=== PATIENT | male | born 1960 | race Two or more races ===

== ENCOUNTER 2018-09-12 20:19 | Emergency (ER) | payer MEDICAID ==
[~2018-09-12] VITALS: Ht 165.1 cm; Wt 74.0 kg
[2018-09-12 21:14] VITALS: BP 161/99
== END 2018-09-13 | disposition left against medical advice (07) ==
LOC: ER 20:19
DX: S89.90XA Unspecified injury of unspecified lower leg, initial encounter (principal); X58.XXXA Exposure to other specified factors, initial encounter; Z53.21 Procedure and treatment not carried out due to patient leaving prior to being seen by health care provider; Y93.89 Activity, other specified; Y92.89 Other specified places as the place of occurrence of the external cause; Y99.8 Other external cause status

== ENCOUNTER 2018-09-14 17:40 | Emergency (ER) | payer MEDICAID ==
[~2018-09-14] VITALS: Ht 175.3 cm; Wt 82.0 kg
[2018-09-14] MEDS ORDERED: TETANUS, DIPHTHERIA, PERTUSSIS VAC/PF 0.5ML (>7YR OLD) IM ONE (21:00)
[2018-09-14] MEDS ORDERED: IBUPROFEN 800MG TABLET PO ONE (21:00)
[2018-09-14 22:17] VITALS: BP 140/90
== END 2018-09-14 22:18 | disposition home or self-care (01) ==
LOC: ER 19:05
DX: S81.832A Puncture wound without foreign body, left lower leg, initial encounter (principal); I10 Essential (primary) hypertension; W27.0XXA Contact with workbench tool, initial encounter; Y93.H2 Activity, gardening and landscaping; Y92.027 Garden or yard of mobile home as the place of occurrence of the external cause; Z23 Encounter for immunization
CPT/HCPCS: 73590; 90471; 90715; 99283

== ENCOUNTER 2018-11-16 11:53 | Emergency (ER) | payer MEDICAID ==
[~2018-11-16] VITALS: Ht 165.1 cm; Wt 77.0 kg
[2018-11-16] MEDS ORDERED: FAMOTIDINE 20MG/2ML VIAL IV STA (12:20)
[2018-11-16] MEDS ORDERED: ONDANSETRON HCL 4MG/2ML INJ IV STA (12:20)
[2018-11-16] MEDS ORDERED: SODIUM CHLORIDE 0.9% 1,000 ML IV ONE (12:20)
[2018-11-16 13:32] LABS: BASOPHILS % 0.4 % (0.0-2.0); EOSINOPHILS % 0.3 % (0.0-5.0); HEMOGLOBIN. 14.5 g/dL (14.0-18.0); MEAN CORPUSCULAR HEMOGLOBIN 28.4 pg (28.0-32.0); MEAN CORPUSCULAR VOLUME 83.9 fL (80.0-94.0); MEAN PLATELET VOLUME 7.9 fl (7.4-10.4); MONOCYTES % 9.2 % (2.0-8.0); NEUTROPHILS % 60.1 % (40.0-76.0); PLATELET 252 x1000/uL (130-400); RED BLOOD CELL COUNT 5.13 mill/uL (4.7-6.1); RED CELL DISTRIBUTION WIDTH 13.8 % (11.6-14.6)
[2018-11-16 13:35] LABS: INR 1.1; PROTHROMBIN TIME 11.2 sec (9.6-11.0)
[2018-11-16 13:38] LABS: CHLORIDE 105 mEq/L (98-107)
[2018-11-16 13:41] LABS: ETHANOL BLOOD < 10 mg/dL
[2018-11-16 15:21] LABS: CLARITY URINE CLEAR (CLEAR); KETONES URINE TRACE (NEGATIVE); LEUKOCYTE ESTERASE URINE NEGATIVE (NEGATIVE); NITRITE URINE NEGATIVE (NEGATIVE); OCCULT BLOOD URINE NEGATIVE (NEGATIVE); PROTEIN URINE 1+ (NEGATIVE); SPECIFIC GRAVITY URINE 1.022 (1.005-1.030)
[2018-11-16 15:24] LABS: COLOR URINE YELLOW (YELLOW)
[2018-11-16 15:39] LABS: *AMPHETAMINES SCREEN URINE NEGATIVE (NEGATIVE); *BARBITURATES SCREEN URINE NEGATIVE (NEGATIVE); *BENZODIAZEPINES SCREEN URINE NEGATIVE (NEGATIVE); *COCAINE SCREEN URINE NEGATIVE (NEGATIVE); METHADONE URINE SCREEN NEGATIVE (NEGATIVE)
[2018-11-16 15:40] LABS: CANNABINOID URINE SCREEN PRESUMTIVE POSITIVE (NEGATIVE); OPIATES URINE SCREEN NEGATIVE (NEGATIVE); PHENCYCLIDINE URINE SCREEN NEGATIVE (NEGATIVE)
[2018-11-16 17:05] VITALS: BP 133/78
== END 2018-11-16 18:28 | disposition home or self-care (01) ==
LOC: ER 12:05
DX: R10.0 Acute abdomen (principal); J06.9 Acute upper respiratory infection, unspecified; I10 Essential (primary) hypertension
CPT/HCPCS: 36415; 71045; 74176; 80053; 80305; 80320; 81003; 83690; 85025; 85610; 96361; 96374; 96375; 99284; J2405; J3490; J7030; G0480

== ENCOUNTER 2019-09-13 11:04 | Emergency (ER) | payer MEDICAID ==
[~2019-09-13] VITALS: Ht 165.1 cm; Wt 67.0 kg
[2019-09-13] MEDS ORDERED: AZITHROMYCIN 500 MG TABLET PO STA (11:18)
[2019-09-13] MEDS ORDERED: CEFTRIAXONE SODIUM 250 MG/VIAL IM STA (11:18)
[2019-09-13] MEDS ORDERED: LIDOCAINE HCL 1% 20ML VIAL (Pyxis) INJ INFIL ONE (11:30)
[2019-09-13 12:00] LABS: CLARITY URINE CLEAR (CLEAR); COLOR URINE YELLOW (YELLOW); KETONES URINE NEGATIVE (NEGATIVE); LEUKOCYTE ESTERASE URINE NEGATIVE (NEGATIVE); NITRITE URINE NEGATIVE (NEGATIVE); OCCULT BLOOD URINE NEGATIVE (NEGATIVE); PROTEIN URINE NEGATIVE (NEGATIVE); SPECIFIC GRAVITY URINE 1.009 (1.005-1.030); UROBILINOGEN URINE 0.2 E.U./dL (0.2-1.0)
[2019-09-13 13:06] VITALS: BP 134/82
[2019-09-15 04:07] LABS: NEISSERIA GONORRHOEAE NAA Negative (Negative)
[2019-11-12] MEDS ORDERED: RISP3 PO (03:52)
[2019-11-12] MEDS ORDERED: AMLO5TAB88 MT (03:53)
== END 2019-09-13 13:08 | disposition home or self-care (01) ==
LOC: ER 11:04
DX: N34.2 Other urethritis (principal); Z11.3 Encounter for screening for infections with a predominantly sexual mode of transmission; I10 Essential (primary) hypertension
CPT/HCPCS: 81003; 87491; 87591; 96372; 99283; J0696; J3490

== ENCOUNTER 2024-05-03 20:37 | Inpatient (IN) | payer MEDICAID ==
[~2024-05-03] VITALS: Ht 162.6 cm; Wt 71.7 kg
[~2024-05-03 20:37] MED LIST: AMLO5TAB88 MT; RISP3 PO
[2024-05-03 21:51] LABS: BASOPHILS % 1.8 % (0.0-2.0); EOSINOPHILS % 1.7 % (0.0-5.0); HEMATOCRIT. 21.4 % (42.0-52.0); LYMPHOCYTES % 24.1 % (20.0-50.0); MEAN CORPUSCULAR HEMOGLOBIN 23.1 pg (28.0-32.0); MEAN CORPUSCULAR HGB CONC 30.8 g/dL (31.0-37.0); MEAN CORPUSCULAR VOLUME 75.1 fL (80.0-94.0); MEAN PLATELET VOLUME 7.2 fl (7.4-10.4); MONOCYTES % 6.5 % (2.0-8.0); NEUTROPHILS % 65.9 % (40.0-76.0); PLATELET 492 x1000/uL (130-400); RED BLOOD CELL COUNT 2.84 mill/uL (4.7-6.1); RED CELL DISTRIBUTION WIDTH 22.2 % (11.6-14.6); WHITE BLOOD COUNT 4.7 x1000/uL (4.5-11.0)
[2024-05-03 21:54] LABS: CHLORIDE 107 mEq/L (98-107); POTASSIUM 3.9 mEq/L (3.5-5.1); SODIUM 140 mEq/L (136-145)
[2024-05-03 21:55] LABS: CALCIUM 9.4 mg/dL (8.7-10.4); CARBON DIOXIDE 26 mEq/L (21-32)
[2024-05-03 21:58] LABS: DIFFERENTIAL COMMENT 1
[2024-05-03 22:00] LABS: GLUCOSE 119 mg/dL (70-105); UREA NITROGEN BLOOD 12 mg/dL (9-23)
[2024-05-03 22:05] LABS: ADD RBC MORPHOLOGY YES; HEMOGLOBIN. 6.6 g/dL (14.0-18.0)
[2024-05-03 22:34] LABS: HYPOCHROMASIA 1+; MICROCYTOSIS 2+; PLATELET ESTIMATE SLIGHTLY INCREASED
[2024-05-04 02:46] VITALS: BP 144/94; PULSE 74; RESP 18; TEMP 36.6
[2024-05-04 04:00] VITALS: BP 139/94; PULSE 78; RESP 16; TEMP 36.7; O2SAT 99
[2024-05-04 07:32] LABS: DIFFERENTIAL COMMENT 0; EOSINOPHILS % 1.7 % (0.0-5.0); HEMATOCRIT. 25.1 % (42.0-52.0); LYMPHOCYTES % 21.6 % (20.0-50.0); MEAN CORPUSCULAR HGB CONC 31.8 g/dL (31.0-37.0); MEAN CORPUSCULAR VOLUME 75.7 fL (80.0-94.0); MEAN PLATELET VOLUME 7.5 fl (7.4-10.4); MONOCYTES % 9.5 % (2.0-8.0); NEUTROPHILS % 65.2 % (40.0-76.0); PLATELET 458 x1000/uL (130-400); RED BLOOD CELL COUNT 3.32 mill/uL (4.7-6.1); RED CELL DISTRIBUTION WIDTH 21.8 % (11.6-14.6); WHITE BLOOD COUNT 5.1 x1000/uL (4.5-11.0)
[2024-05-04 08:00] VITALS: BP 140/94; PULSE 62; RESP 19; TEMP 36.7; O2SAT 97
[2024-05-04] MEDS ORDERED: GUAIFENESIN 200MG/10ML SUGAR FREE UDC PO PRN (08:15)
[2024-05-04] MEDS ORDERED: IPRATROPIUM/ALBUTEROL 0.5-3(2.5)MG/3ML NEB HHN PRN (08:15)
[2024-05-04] MEDS ORDERED: ONDANSETRON HCL 4MG/2ML INJ IV PRN (08:15)
[2024-05-04] MEDS ORDERED: HYDRALAZINE 20MG/ML VIAL IV PRN (08:15)
[2024-05-04] MEDS ORDERED: DOCUSATE SODIUM 100MG CAPSULE PO PRN (08:15)
[2024-05-04] MEDS ORDERED: MAGNESIUM/ALUMINUM HYDROXIDE/SIMETHICONE 30ML UDC PO PRN (08:15)
[2024-05-04] MEDS ORDERED: HYDRALAZINE 10 MG in SODIUM CHLORIDE 0.9% 49.5 ML IV PRN (08:30)
[2024-05-04] MEDS: AMLODIPINE 5MG TABLET PO SCH (09:47)
[2024-05-04] MEDS: PANTOPRAZOLE SODIUM 40 MG/VIAL IV SCH (09:47)
[2024-05-04 11:39] VITALS: BP 133/92; PULSE 84; RESP 19; TEMP 36.4; O2SAT 100
[2024-05-04 11:51] LABS: CHLORIDE 104 mEq/L (98-107); POTASSIUM 4.1 mEq/L (3.5-5.1); SODIUM 139 mEq/L (136-145)
[2024-05-04 11:52] LABS: CALCIUM 9.8 mg/dL (8.7-10.4); CARBON DIOXIDE 25 mEq/L (21-32)
[2024-05-04 11:56] LABS: IRON 18 ug/dL (65-175)
[2024-05-04 11:57] LABS: GLUCOSE 99 mg/dL (70-105); UREA NITROGEN BLOOD 10 mg/dL (9-23)
[2024-05-04 11:59] LABS: PHOSPHORUS 3.2 mg/dL (2.5-4.9); TOTAL IRON BINDING CAPACITY 370 ug/dl (250-425)
[2024-05-04 12:00] LABS: VITAMIN B12 SERUM 417 pg/mL (211-911)
[2024-05-04 12:01] LABS: FOLIC ACID (FOLATE) SERUM > 20.00 ng/mL (>5.38); T4 FREE 1.01 ng/dL (0.89-1.76)
[2024-05-04] MEDS: SUCRALFATE 1G TABLET PO SCH (12:08)
[2024-05-04 12:18] LABS: THYROID STIMULATING HORMONE 1.03 uIU/mL (0.55-4.78)
[2024-05-04 13:30] LABS: FERRITIN 4 ng/mL (22-322)
[2024-05-04 13:37] LABS: CLARITY URINE CLEAR (CLEAR); COLOR URINE YELLOW (YELLOW); GLUCOSE URINE NEGATIVE (NEGATIVE); KETONES URINE NEGATIVE (NEGATIVE); LEUKOCYTE ESTERASE URINE NEGATIVE (NEGATIVE); NITRITE URINE NEGATIVE (NEGATIVE); OCCULT BLOOD URINE NEGATIVE (NEGATIVE); PROTEIN URINE NEGATIVE (NEGATIVE); SPECIFIC GRAVITY URINE 1.016 (1.005-1.030); UROBILINOGEN URINE 0.2 E.U./dL (0.2-1.0)
[2024-05-04 16:00] VITALS: BP 128/90; PULSE 73; RESP 19; TEMP 36.6; O2SAT 100
[2024-05-04 17:00] LABS: HEMATOCRIT 25.9 % (42.0-52.0); HEMOGLOBIN 8.1 g/dL (14.0-18.0); MEAN CORPUSCULAR HEMOGLOBIN 23.8 pg (28.0-32.0); MEAN CORPUSCULAR HGB CONC 31.2 g/dL (31.0-37.0); MEAN CORPUSCULAR VOLUME 76.5 fL (80.0-94.0); PLATELET 465 x1000/uL (130-400); RED BLOOD CELL COUNT 3.39 mill/uL (4.7-6.1); RED CELL DISTRIBUTION WIDTH 22.1 % (11.6-14.6); WHITE BLOOD COUNT 4.8 x1000/uL (4.5-11.0)
[2024-05-04 20:00] VITALS: BP 146/89; PULSE 79; RESP 18; TEMP 36.6; O2SAT 97
[2024-05-04] MEDS ORDERED: MELATONIN 3MG TABLET PO PRN (21:00)
[2024-05-04] MEDS: IRON SUCROSE COMPLEX 100 MG/5 ML ML IV SCH (22:03)
[2024-05-05] MEDS: ACETAMINOPHEN 325MG TABLET PO PRN (02:22)
[2024-05-05 04:00] VITALS: BP 153/88; PULSE 73; RESP 18; TEMP 36.6; O2SAT 100
[2024-05-05 08:00] VITALS: BP 128/47; PULSE 74; RESP 20; TEMP 36.3; O2SAT 100
[2024-05-05 08:19] LABS: CARBON DIOXIDE 26 mEq/L (21-32); CHLORIDE 102 mEq/L (98-107); SODIUM 138 mEq/L (136-145)
[2024-05-05 08:20] LABS: CALCIUM 9.9 mg/dL (8.7-10.4); EOSINOPHILS % 1.4 % (0.0-5.0); HEMATOCRIT. 27.1 % (42.0-52.0); HEMOGLOBIN. 8.6 g/dL (14.0-18.0); LYMPHOCYTES % 17.4 % (20.0-50.0); MEAN CORPUSCULAR HEMOGLOBIN 23.7 pg (28.0-32.0); MEAN CORPUSCULAR HGB CONC 31.5 g/dL (31.0-37.0); MEAN CORPUSCULAR VOLUME 75.2 fL (80.0-94.0); MEAN PLATELET VOLUME 7.4 fl (7.4-10.4); MONOCYTES % 8.8 % (2.0-8.0); NEUTROPHILS % 71.4 % (40.0-76.0); PLATELET 455 x1000/uL (130-400); RED BLOOD CELL COUNT 3.61 mill/uL (4.7-6.1); RED CELL DISTRIBUTION WIDTH 22.1 % (11.6-14.6); WHITE BLOOD COUNT 4.6 x1000/uL (4.5-11.0)
[2024-05-05] MEDS: ASCORBIC ACID 500 MG TABLET PO SCH (08:22)
[2024-05-05 08:25] LABS: GLUCOSE 103 mg/dL (70-105); PROTHROMBIN TIME 11.1 sec (9.6-11.0); UREA NITROGEN BLOOD 15 mg/dL (9-23)
[2024-05-05 08:31] LABS: DIFFERENTIAL COMMENT 1
[2024-05-05] MEDS ORDERED: FERROUS SULFATE 300MG/5ML UDC PO SCH (09:00)
[2024-05-05] MEDS ORDERED: IOHEXOL-300 100 ML BOTTLE ONE (10:33)
[2024-05-05 12:00] VITALS: BP 129/86; PULSE 80; RESP 18; TEMP 36.6; O2SAT 99
[2024-05-05 16:00] VITALS: BP 131/80; PULSE 80; RESP 18; TEMP 36.4; O2SAT 98
[2024-05-06] VITALS: BP 139/88; PULSE 93; RESP 19; TEMP 37.5; O2SAT 100
[2024-05-06 04:00] VITALS: BP 130/84; PULSE 96; RESP 20; TEMP 36.5; O2SAT 98
[2024-05-06 08:00] VITALS: BP 128/91; PULSE 77; RESP 19; TEMP 36.4; O2SAT 100
[2024-05-06 08:10] LABS: CA 19-9 < 2 U/mL (0-35); CARCINOEMBRYONIC AG - SEND OUT 2.6 ng/mL (0.0-4.7); PROSTATE SPECIFIC AG TOTAL 0.6 ng/mL (0.0-4.0)
[2024-05-06] MEDS ORDERED: FERR-63 PO (10:47)
[2024-05-06] MEDS ORDERED: PANT40VI IV (10:47)
[2024-05-06] MEDS ORDERED: PANT40VI PO (10:50)
[2024-05-06 12:00] VITALS: BP 132/89; PULSE 82; RESP 19; TEMP 36.6; O2SAT 100
[2024-05-06 14:10] VITALS: BP 129/81; PULSE 78; TEMP 98.2; O2SAT 98
[2024-05-07] MEDS ORDERED: FERROUS SULFATE 325MG TABLET PO SCH (07:50)
== END 2024-05-06 14:30 | disposition home or self-care (01) | DRG 663 ==
LOC: ER 20:37 → 6EST 23:02 → EDBEDREQTM 23:09 → EDBEDREQ 23:09 → EDBEDREQSVC 23:09
PROVIDERS: ADMIT Internal Medicine; ATTEND Internal Medicine
PROC: 30233N1 Transfusion of Nonautologous Red Blood Cells into Peripheral Vein, Percutaneous Approach (ICD-10-PCS; principal; 2024-05-04)
DX: D50.9 Iron deficiency anemia, unspecified (principal); F10.21 Alcohol dependence, in remission; Y90.9 Presence of alcohol in blood, level not specified; F14.90 Cocaine use, unspecified, uncomplicated; I10 Essential (primary) hypertension; Z88.6 Allergy status to analgesic agent
CPT/HCPCS: 36415; 36430; 71045; 74177; 80048; 81003; 82378; 82607; 82728; 82746; 83540; 83550; 83735; 84100; 84153; 84439; 84443; 85025; 85027; 85044; 86301; 86850; 86900; 86920; 93005; 99285; A4606; J2470; P9016; Q9967